=== PATIENT | male | born 1950 | race American Indian/Alaskan Native ===

== ENCOUNTER 2018-04-21 09:29 | Day surgery (SDC) | payer OTHER, MEDICARE ==
[~2018-04-21 09:29] MED LIST: NACL 0.9% 1000 ML 1,000 ML IV SCH
[2018-04-21] MEDS ORDERED: DIPRIVAN 10 MG/ML IV ONE ×2 (10:45)
[2018-04-21] MEDS ORDERED: WATER FOR IRRIG STERILE IR ONE (11:14)
--- NOTE | 2018-04-21 11:14 | Anesthesia Day of Surgery ---
Anesthesia Day of Surgery - Day of Surgery Patient Examined: Yes Patient H&P Reviewed: Yes Patient is NPO: Yes
--- NOTE | 2018-04-21 11:14 | Anesthesia Consultation ---
Anesthesia Consult and Med Hx Date of service: 04/21/18 - Airway Anesthetic Teeth Evaluation: Good ROM Head & Neck: Adequate Mental/Hyoid Distance: Adequate Mallampati Class: Class II Intubation Access Assessment: Probably Good - Pulmonary Exam CTA: Yes - Cardiac Exam Cardiac Exam: RRR - Pre-Operative Health Status ASA Pre-Surgery Classification: ASA3 Proposed Anesthetic Plan: MAC - Cardiovascular System Hx Hypertension: Yes - Endocrine Hx End Stage Renal Disease: Yes (Dialysis) Hx Non-Insulin Dependent Diabetes: Yes - Hematic Hx Anemia: Yes - Other Systems Hx Cancer: Yes (renal cell, s/p nephrectomy )
--- NOTE | 2018-04-21 11:17 | Short Stay Summary ---
Short Stay Documentation Date of service: 04/21/18 - History H&P: obtained from office - Allergies and Medications Current Medications: Allergies No Known Allergies Allergy (Verified 04/21/18 08:39) Home Medications Medication Instructions Recorded Confirmed Last Taken Type Adult Low Dose Aspirin EC 81 mg PO DAILY 04/21/18 04/21/18 04/20/18 History Allopurinol 100 mg PO DAILY 04/21/18 04/21/18 04/20/18 History Atenolol 25 mg PO DAILY 04/21/18 04/21/18 04/21/18 History Bupropion HCl 150 mg PO DAILY 04/21/18 04/21/18 Unknown History Calcium 667 mg PO DAILY 04/21/18 04/21/18 04/20/18 History Dialyvite with Zinc Tablet 1 tab PO DAILY 04/21/18 04/21/18 04/20/18 History Docusate Calcium 240 mg PO DAILY 04/21/18 04/21/18 04/20/18 History Ferrous Sulfate 325 mg PO DAILY 04/21/18 04/21/18 04/20/18 History Finasteride 5 mg PO DAILY 04/21/18 04/21/18 04/20/18 History Indapamide 2.5 mg PO DAILY 04/21/18 04/21/18 04/20/18 History Insulin Aspart 10 units SUB-Q DAILY 04/21/18 04/21/18 04/20/18 History Macrobid CAP 100 mg PO DAILY 04/21/18 04/21/18 04/20/18 History NIFEdipine 90 mg PO DAILY 04/21/18 04/21/18 04/21/18 History Sevelamer Carbonate 800 mg PO DAILY 04/21/18 04/21/18 04/20/18 History Tamsulosin 0.4 mg PO DAILY 04/21/18 04/21/18 04/20/18 History Vitamin D3 1 tab PO DAILY 04/21/18 04/21/18 04/20/18 History Active Medications Sodium Chloride (Nacl 0.9% 1000 Ml) 1,000 mls @ 50 mls/hr IV DIRECT JULIA Last Admin: 04/21/18 10:10 Dose: 50 mls/hr - Brief post op/procedure progress note Date of procedure: 04/21/18 Findings: see dictated report. Estimated blood loss: none Pathology: list (ascending colon polyp) Specimen disposition: to lab Condition: stable - Disposition Condition at discharge: Good Disposition: DC-01 TO HOME OR SELFCARE - Discharge Diagnoses (1) History of colon polyps Status: Acute Short Stay Discharge Plan Activity: other (no driving for 24 hours) Weight Bearing Status: Full Weight Bearing Diet: renal Follow up with: [place] LOVING MD [Other] - 7 Days
--- NOTE | 2018-04-21 11:19 | Operative Report ---
Operative Report Operative Report: Date of procedure: 04/21/2018 Preprocedure diagnosis:: Polyps, last study 5 years ago. See office H&P from 3 weeks ago. Post procedure diagnosis: Diminutive ascending colon polyp Procedure: Colonoscopy to the cecum with cold snare polypectomy Endoscopist: Dr. Salgado Anesthesia: Monitored anesthesia care per anesthesia department Estimated blood loss: 0 Medications: Monitored anesthesia care. See separate report by anesthesia for details. After careful discussion of the nature and purpose of the procedure as well as details of the technique risks benefits and alternatives the patient gave consent. Please see recent history and physical from the office. The patient was placed in the left lateral decubitus position and medicated per anesthesia. A rectal exam was performed sphincter tone was normal there were no masses palpable. The Audiosocketn 570 scope was passed transanally and advanced under continuous direct vision without difficulty to the cecum. The colon was well prepared. The cecum was normal. The ascending colon revealed a diminutive polyp near the ileocecal valve. The polyp was removed with cold snare resection and retrieved by suction. The transverse colon, descending colon, and sigmoid colon were normal. The rectum was normal on forward and retroflexed views. The procedure was well-tolerated overall and the patient was observed in recovery. Conclusions: Diminutive ascending colon polyp, otherwise normal colonoscopy to the cecum. Plan: Repeat colonoscopy in 5 years. Signed electronically: Glynn Salgado M.D.
[2018-04-21 11:41] VITALS: BP 140/77
== END 2018-04-21 09:30 | disposition home or self-care (01) ==
LOC: GIO 09:29
PROVIDERS: ATTEND Internal Medicine Gastroenterology
DX: K63.5 Polyp of colon (principal); I12.0 Hypertensive chronic kidney disease with stage 5 chronic kidney disease or end stage renal disease; E11.22 Type 2 diabetes mellitus with diabetic chronic kidney disease; N18.6 End stage renal disease; F32.9 Major depressive disorder, single episode, unspecified; E78.00 Pure hypercholesterolemia, unspecified; F41.9 Anxiety disorder, unspecified; Z79.899 Other long term (current) drug therapy; Z86.2 Personal history of diseases of the blood and blood-forming organs and certain disorders involving the immune mechanism; Z98.890 Other specified postprocedural states; Z79.4 Long term (current) use of insulin; Z90.5 Acquired absence of kidney; Z85.528 Personal history of other malignant neoplasm of kidney
CPT/HCPCS: 45385; 88305; J2704; J7030